=== PATIENT | female | born 1975 | race Caucasian/White ===

== ENCOUNTER 2022-06-16 15:29 | Emergency (ER) | payer BC ==
[2022-06-16] MEDS ORDERED: ACETAMINOPHEN W/CODEINE 300-30 MG TAB PO ONE (21:10)
--- NOTE | 2022-06-16 21:39 | Emergency Department Report ---
ED General Adult HPI - General Chief complaint: Upper Respiratory Infection Stated complaint: BAD COUGH Time Seen by Provider: 06/16/22 21:10 Source: patient Mode of arrival: Ambulatory Limitations: No Limitations - History of Present Illness Initial comments: Patient 47-year-old female who presents for cough productive clear x10 days. Patient denies fevers or chills there is no ear or throat pain. Primary complaint is cough. Patient denies history of asthma or bronchitis there is no shortness of breath no chest pain no nausea no vomiting. As are exacerbated by environmental exposure. Symptoms are relieved by nothing tried. Severity scale (0 -10): 8 - Related Data Previous Rx's Medication Instructions Recorded Last Taken Type Fexofenadine/Pseudoephedrine 1 each PO DAILY PRN #20 tab 06/16/22 Unknown Rx [[place]-D 24 Hour Tablet] guaiFENesin [Guaifenesin] 400 mg PO Q8H PRN #30 tab 06/16/22 Unknown Rx Allergies Allergy/AdvReac Type Severity Reaction Status Date / Time No Known Allergies Allergy Verified 06/16/22 16:02 ED Review of Systems ROS: Stated complaint: BAD COUGH Other details as noted in HPI Constitutional: denies: chills, fever Eyes: denies: eye pain, eye discharge, vision change ENT: congestion. denies: ear pain, throat pain Respiratory: cough. denies: shortness of breath, wheezing Cardiovascular: denies: chest pain, palpitations Endocrine: no symptoms reported Gastrointestinal: denies: abdominal pain, nausea, diarrhea Genitourinary: denies: urgency, dysuria, discharge Musculoskeletal: denies: back pain, joint swelling, arthralgia Skin: denies: rash, lesions Neurological: denies: headache, weakness, paresthesias, vertigo Psychiatric: as per HPI Hematological/Lymphatic: denies: easy bleeding, easy bruising ED Past Medical Hx - Past Medical History Previous Medical History?: No - Surgical History Past Surgical History?: No - Medications Home Medications: Home Medications Medication Instructions Recorded Confirmed Last Taken Type Fexofenadine/Pseudoephedrine 1 each PO DAILY PRN #20 tab 06/16/22 Unknown Rx [[place]-D 24 Hour Tablet] guaiFENesin [Guaifenesin] 400 mg PO Q8H PRN #30 tab 06/16/22 Unknown Rx ED Physical Exam - General Limitations: No Limitations General appearance: alert, in no apparent distress - Head Head exam: Present: normocephalic, normal inspection - Eye Eye exam: Present: PERRL, EOMI Pupils: Present: normal accommodation - ENT ENT exam: Present: normal orophraynx, mucous membranes moist, normal external ear exam - Neck Neck exam: Present: normal inspection, full ROM. Absent: tenderness, lymphadenopathy - Respiratory Respiratory exam: Present: normal lung sounds bilaterally. Absent: respiratory distress, wheezes, stridor, chest wall tenderness - Cardiovascular Cardiovascular Exam: Present: regular rate, normal rhythm, normal heart sounds. Absent: systolic murmur, diastolic murmur, rubs, gallop - GI/Abdominal GI/Abdominal exam: Present: soft, normal bowel sounds. Absent: distended, tenderness - Rectal Rectal exam: Present: deferred - Extremities Exam Extremities exam: Present: normal inspection, full ROM, normal capillary refill - Back Exam Back exam: Present: normal inspection, full ROM. Absent: CVA tenderness (R), CVA tenderness (L) - Neurological Exam Neurological exam: Present: alert, oriented X3, CN II-XII intact, normal gait - Expanded Neurological Exam Expanded Patient oriented to: Present: person, place, time Speech: Present: fluid speech Motor strength exam: RUE: 5, LUE: 5, RLE: 5, LLE: 5 Best Eye Response ([place]): (4) open spontaneously Best Motor Response ([place]): (6) obeys commands Best Verbal Response ([place]): (5) oriented [place] Total: 15 - Psychiatric Psychiatric exam: Present: normal affect, normal mood - Skin Skin exam: Present: warm, dry, intact, normal color. Absent: rash ED Course Vital Signs 06/16/22 15:58 Temperature 98.9 F Pulse Rate 94 H Respiratory 16 Rate Blood Pressure 156/100 [Right] O2 Sat by Pulse 100 Oximetry ED Medical Decision Making - Medical Decision Making Patient declines chest x-ray, physical exam consistent with URI, plan DC to home diagnosis URI, antihistamines cough suppressants continue to hydrate follow-up primary care doctor in 2 to 3 days. Patient appears well-nourished well- hydrated nontoxic and with no acute distress at this time. Patient verbalized agreement and understanding with discharge plan peer patient DC'd home in stable condition at this time. Critical care attestation.: If time is entered above; I have spent that time in minutes in the direct care of this critically ill patient, excluding procedure time. ED Disposition Clinical Impression: URI (upper respiratory infection) Qualifiers: URI type: unspecified URI Qualified Code(s): J06.9 - Acute upper respiratory infection, unspecified Disposition: 01 HOME / SELF CARE / HOMELESS Is pt being admited?: No Does the pt Need Aspirin: No Condition: Stable Instructions: Upper Respiratory Infection, Adult Additional Instructions: Take medications as prescribed, hydrate as directed, follow-up with your doctor in 2 to 3 days. Return to emergency department should symptoms worsen. Prescriptions: Fexofenadine/Pseudoephedrine [Charl[place]-D 24 Hour Tablet] 1 each PO DAILY PRN #20 tab PRN Reason: URI symptoms guaiFENesin [Guaifenesin] 400 mg PO Q8H PRN #30 tab PRN Reason: Cough Referrals: ARMANDO NI MD [Primary Care Provider] - 3-5 Days Forms: Work/School Release Form(ED) Time of Disposition: 21:39
[2022-06-16 23:31] VITALS: BP 159/91
== END 2022-06-16 23:32 | disposition home or self-care (01) ==
LOC: ED 15:29
DX: J06.9 Acute upper respiratory infection, unspecified (principal)
CPT/HCPCS: 99282